=== PATIENT | female | born 1930 | race Caucasian/White ===

== ENCOUNTER → 2016-10-22 | Outpatient (CLI) | payer MEDICARE, BC ==
--- NOTE | 2016-10-22 17:10 | RADRPT ---
PROCEDURE: XR Right hip and pelvis. CLINICAL INDICATION: Right hip pain and pelvic pain. TECHNIQUE: 3 views. Frontal pelvis. Frontal and lateral right hip. COMPARISON: None. FINDINGS: There is no fracture or dislocation. The soft tissues are normal. There are degenerative changes of the right hip with joint space narrowing, osteophytes, subarticula r sclerosis, and subarticular cysts. The left hip is unremarkable. There is no lytic or blastic lesion. The upper pelvis is not completely included on the image. IMPRESSION: 1. 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 2. Otherwise unremarkable study. RPTAT: QQ .Carmelo Sheffield MD, MD Date Time Electronically viewed and signed by .Carmelo Sheffield MD, MD on 10/22/2016 17:10 .R/
== END | disposition home or self-care (01) ==
LOC: HKI 14:40
PROVIDERS: ATTEND Orthopaedic Surgery
DX: M25.551 Pain in right hip (principal); M16.11 Unilateral primary osteoarthritis, right hip
CPT/HCPCS: 73502; G0463